=== PATIENT | male | born 1955 | race Caucasian/White ===

== ENCOUNTER 2016-12-27 10:03 | Emergency (ER) | payer MEDICAID, OTHER ==
[~2016-12-27] VITALS: Ht 182.9 cm; Wt 92.5 kg
[2016-12-27 10:52] LABS: Basophils # (auto) 0 uL; Basophils % (auto) 0.4 % (0.0-2.0); DEFINITIVE VIEW TRANSMISSION; Eosinophils # (auto) 0 uL; Eosinophils % (auto) 0.3 % (0.0-7.0); Hematocrit 52.9 % (41.0-53.0); Lymphocytes # (auto) 1.4 uL; Lymphocytes % (auto) 13.3 % (10.0-50.0); Mean Corpuscular Hemoglobin 27.4 pg (28.0-32.0); Mean Corpuscular Hgb Conc. 32.1 g/dL (32.0-36.0); Mean Corpuscular Volume 85.5 fL (80.0-100.0); Mean Platelet Volume 8.2 fL (7.4-10.4); Monocytes # (auto) 0.6 uL; Monocytes % (auto) 5.8 % (0.0-12.0); Neutrophils # (auto) 8.7 uL; Neutrophils % (auto) 80.2 % (37.0-80.0); Platelet Count (auto) 288 10^3/uL (140-450); Red Cell Distribution Width 13.9 % (11.6-16.0); White Blood Cell 10.8 10^3/uL (4.4-10.8)
[2016-12-27 11:20] LABS: Albumin 4.2 g/dL (3.4-5.0); BUN/Creatinine Ratio 12.9; Bilirubin, Total 0.5 mg/dL (0.2-1.0); Calcium 9.3 mg/dL (8.5-10.1)
[2016-12-27 12:00] VITALS: BP 154/101
== END 2016-12-27 12:14 | disposition home or self-care (01) ==
LOC: ER 10:03
DX: J20.9 Acute bronchitis, unspecified (principal); Z98.890 Other specified postprocedural states
CPT/HCPCS: 36415; 71020; 80053; 83735; 84484; 85025; 85379; 93005; 94761

== ENCOUNTER 2019-12-07 11:58 | Emergency (ER) | payer MEDICAID ==
[~2019-12-07] VITALS: Ht 182.9 cm; Wt 92.5 kg
[2019-12-07 13:21] LABS: Basophils # (auto) 0.1 uL; Basophils % (auto) 0.8 % (0.0-2.0); Eosinophils # (auto) 0.1 uL; Eosinophils % (auto) 0.9 % (0.0-7.0); Lymphocytes # (auto) 2.9 uL; Neutrophils # (auto) 7.5 uL
[2019-12-07 13:24] LABS: Hematocrit 51.9 % (41.0-53.0); Hemoglobin 17.9 g/dL (13.5-17.5); Lymphocytes % (auto) 24.7 % (10.0-50.0); Mean Corpuscular Hemoglobin 29.7 pg (28.0-32.0); Mean Corpuscular Hgb Conc. 34.5 g/dL (32.0-36.0); Monocytes # (auto) 1.1 uL; Monocytes % (auto) 9.4 % (0.0-12.0); Neutrophils % (auto) 64.2 % (37.0-80.0); Nucleated Red Blood Cells % 0.5 %; Platelet Count (auto) 328 10^3/uL (140-450); Red Blood Cells 6.03 10^6/uL (4.5-5.90); Red Cell Distribution Width 12.7 % (11.8-14.3); White Blood Cell 11.6 10^3/uL (4.4-10.8)
[2019-12-07 13:46] LABS: Chloride 109 mmol/L (98-107); Potassium 3.9 mmol/L (3.5-5.1); Sodium 139 mmol/L (136-145)
[2019-12-07 13:52] LABS: Alanine Aminotransferase 51 U/L (16-61); Albumin 4.3 g/dL (3.4-5.0); Anion Gap 9 (5-15); Aspartate Aminotransferase 28 U/L (15-37); BUN/Creatinine Ratio 11.5; Blood Urea Nitrogen 15 mg/dL (7-18); Calcium 9.5 mg/dL (8.5-10.1); Carbon Dioxide 21 mmol/L (21-32); GFR African American 71 mL/min; GFR Non-African American 59 mL/min; Glucose 108 mg/dL (74-106)
[2019-12-07 14:10] LABS: Alkaline Phosphatase 50 U/L (45-117); Bilirubin, Total 0.4 mg/dL (0.2-1.0); Total Protein 8.2 g/dL (6.4-8.2)
[2019-12-07 16:55] VITALS: BP 149/96
== END 2019-12-07 16:59 | disposition home or self-care (01) ==
LOC: ER 11:58
DX: J20.9 Acute bronchitis, unspecified (principal); R07.89 Other chest pain; R11.2 Nausea with vomiting, unspecified; E78.5 Hyperlipidemia, unspecified; I10 Essential (primary) hypertension
CPT/HCPCS: 36415; 71046; 80053; 84484; 85025; 93005

== ENCOUNTER 2024-02-15 18:09 | Inpatient (IN) | payer MEDICARE, MEDICAID ==
[~2024-02-15] VITALS: Ht 182.9 cm; Wt 85.4 kg
[2024-02-15] MEDS: MECLIZINE HCL 25 MG TAB PO ONE (19:12)
[2024-02-15 19:14] LABS: Basophils # (auto) 0.1 10 ^3/uL (0-0.2); Basophils % (auto) 0.4 % (0.0-2.0); Eosinophils # (auto) 0.1 10 ^3/uL (0-0.8); Eosinophils % (auto) 0.5 % (0.0-7.0); Hematocrit 45.9 % (41.0-53.0); Hemoglobin 15.4 g/dL (13.5-17.5); Lymphocytes # (auto) 1.5 10 ^3/uL (0.4-5.4); Lymphocytes % (auto) 8.4 % (10.0-50.0); Mean Corpuscular Hemoglobin 28.3 pg (28.0-32.0); Mean Corpuscular Hgb Conc. 33.6 g/dL (32.0-36.0); Mean Corpuscular Volume 84.3 fL (80.0-100.0); Monocytes # (auto) 0.8 10 ^3/uL (0-1.3); Monocytes % (auto) 4.6 % (0.0-12.0); Neutrophils % (auto) 86.1 % (37.0-80.0); Red Blood Cells 5.45 10^6/uL (4.5-5.90); Red Cell Distribution Width 13.1 % (11.8-14.3); White Blood Cell 17.4 10^3/uL (4.4-10.8)
[2024-02-15 19:29] LABS: INR 1.09 (0.9-1.15); Partial Thromboplastin Time 25.6 SEC (24.5-34.5); Prothrombin Time 11.4 sec (9.3-11.8)
[2024-02-15 19:34] LABS: Alanine Aminotransferase 59 U/L (7-40); Albumin 4.5 g/dL (3.2-4.8); Alkaline Phosphatase 47 U/L (46-116); Anion Gap 7 (5-15); Aspartate Aminotransferase 37 U/L (13-40); BUN/Creatinine Ratio 13.9 (10.0-20.0); Blood Urea Nitrogen 15 mg/dL (9-23); Calcium 10.3 mg/dL (8.7-10.4); Carbon Dioxide 23 mmol/L (20-30); Chloride 105 mmol/L (98-107); Glucose 263 mg/dL (74-106); Sodium 135 mmol/L (136-145)
[2024-02-15 19:35] LABS: Bilirubin, Total 0.5 mg/dL (0.2-1.0)
[2024-02-15 19:50] VITALS: PULSE 86; RESP 20; O2SAT 95
[2024-02-15] MEDS: IOHEXOL 350 MG/ML 100ML IJ ONE (20:20)
[2024-02-15] MEDS: LABETALOL HCL 5 MG/ML 4ML SYRINGE IV ONE (20:34)
[2024-02-15] MEDS ORDERED: DEXTROSE (50%) 50ML SYRG IV PRN ×2 (21:00→21:15)
[2024-02-15] MEDS ORDERED: MECLIZINE HCL 25 MG TAB PO PRN ×2 (21:00→21:15)
[2024-02-15] MEDS ORDERED: TEMAZEPAM 15 MG CAP PO PRN ×2 (21:00→21:15)
[2024-02-15] MEDS ORDERED: hydrALAZINE HCL 20 MG/ML VL IV PRN (21:00)
[2024-02-15] MEDS ORDERED: ACETAMINOPHEN 325 MG TAB PO PRN (21:00)
[2024-02-15] MEDS ORDERED: ONDANSETRON HCL 4 MG/2 ML VIAL IV PRN (21:00)
[2024-02-15] MEDS: PIPERACILLIN-TAZOB 3.375GM 100 ML IV ONE (21:05)
[2024-02-15 21:18] LABS: Urine Bacteria None Seen /hpf (None Seen)
[2024-02-15 21:39] LABS: Urine Blood Negative /uL (Negative); Urine Clarity Clear (Clear); Urine Color Light-Yellow (Yellow); Urine Protein, UAD Negative (Negative); Urine Urobilinogen Normal (Negative); Urine WBC 1 /hpf (0 - 3)
[2024-02-15 21:40] LABS: Amphetamine Screen, Urine Neg (NEGATIVE); Barbiturate Scree,Urine Neg (NEGATIVE); Benzodiazephine Screen, Urine Neg (NEGATIVE); Cannabinoid Screen, Urine Pos (NEGATIVE); Cocaine Screen, Urine Neg (NEGATIVE); Opiate Scree,Urine Neg (NEGATIVE); Phencyclidine Screen, Urine Neg (NEGATIVE)
[2024-02-15 21:42] LABS: Urine Specific Gravity > 1.050 (1.001-1.035)
[2024-02-15] MEDS ORDERED: ATORVASTATIN 20 MG TAB PO SCH (22:00)
[2024-02-15] MEDS ORDERED: ACCU-CHEK COMFORT CURVE STRIP VI SCH (22:00)
[2024-02-15] MEDS ORDERED: InsuLIN REG 1unit/0.01ml Soln (100units/ml) SC SCH (22:00)
[2024-02-15] MEDS: ACCU-CHEK COMFORT CURVE STRIP VI SCH (22:44)
[2024-02-15] MEDS: InsuLIN REG 1unit/0.01ml Soln (100units/ml) SC SCH (22:54)
[2024-02-15] MEDS: ATORVASTATIN 20 MG TAB PO SCH (22:54)
[2024-02-16] VITALS (8 sets, daily range): BP systolic 124–156; BP diastolic 78–90; PULSE 87–106; RESP 16–18; TEMP 97.7–98.5; O2SAT 93–96
[2024-02-16] MEDS: hydrALAZINE HCL 20 MG/ML VL IV PRN (00:26)
[2024-02-16] MEDS ORDERED: METF-370 PO (02:19)
[2024-02-16] MEDS ORDERED: AMLO1TAB23 PO (02:19)
[2024-02-16] MEDS ORDERED: SITA100T7 PO (02:19)
[2024-02-16] MEDS ORDERED: GLIP10TA9 PO (02:19)
[2024-02-16] MEDS ORDERED: ATOR20TA50 PO (02:19)
[2024-02-16 05:46] LABS: Basophils # (auto) 0.1 10 ^3/uL (0-0.2); Basophils % (auto) 0.5 % (0.0-2.0); Eosinophils # (auto) 0.1 10 ^3/uL (0-0.8); Eosinophils % (auto) 1.1 % (0.0-7.0); Lymphocytes # (auto) 2.9 10 ^3/uL (0.4-5.4); Lymphocytes % (auto) 23.3 % (10.0-50.0); Mean Corpuscular Hemoglobin 28.7 pg (28.0-32.0); Mean Corpuscular Volume 84.3 fL (80.0-100.0); Monocytes # (auto) 1.2 10 ^3/uL (0-1.3); Monocytes % (auto) 9.1 % (0.0-12.0); Neutrophils # (auto) 8.3 10 ^3/uL (1.6-8.6); Red Blood Cells 5.57 10^6/uL (4.5-5.90); Red Cell Distribution Width 13.2 % (11.8-14.3); White Blood Cell 12.6 10^3/uL (4.4-10.8)
[2024-02-16 05:52] LABS: Chloride 109 mmol/L (98-107); Potassium 3.4 mmol/L (3.5-5.1); Sodium 139 mmol/L (136-145)
[2024-02-16 05:53] LABS: Anion Gap 5 (5-15); Carbon Dioxide 25 mmol/L (20-30)
[2024-02-16 05:54] LABS: Calcium 9.7 mg/dL (8.5-10.1)
[2024-02-16 05:58] LABS: Glucose 176 mg/dL (74-106)
[2024-02-16 05:59] LABS: BUN/Creatinine Ratio 9.9 (10.0-20.0); Blood Urea Nitrogen 10 mg/dL (9-23)
[2024-02-16] MEDS ORDERED: DEXTROSE (50%) 50ML SYRG IV PRN (08:00)
[2024-02-16 08:24] LABS: CRP High Sensitivity 0.15 mg/dL (<1.0)
[2024-02-16 08:51] LABS: Erythrocyte Sedimentation Rate 1 mm/hr (0-20)
[2024-02-16] MEDS ORDERED: cefTRIAXone 1GM/50ML D5W 50 ML IV SCH (09:00)
[2024-02-16 09:21] LABS: Folate (Folic Acid) 38.69 ng/mL (>5.38)
[2024-02-16] MEDS: ENOXAPARIN SOD 40 MG/0.4 ML SYRINGE SC SCH (09:56)
[2024-02-16] MEDS: amLODIPine BESYLATE 5 MG TAB PO SCH (09:57)
[2024-02-16] MEDS ORDERED: LISINOPRIL 5 MG TAB PO SCH ×2 (10:00)
[2024-02-16] MEDS ORDERED: ENOXAPARIN SOD 40 MG/0.4 ML SYRINGE SC SCH (10:00)
[2024-02-16 10:22] LABS: Magnesium 1.9 mg/dL (1.6-2.6)
[2024-02-16] MEDS: POTASSIUM EFFERVESENT TAB 25 MEQ PO ONE (12:17)
[2024-02-16] MEDS: ACCU-CHEK COMFORT CURVE STRIP VI SCH (12:18)
[2024-02-16] MEDS: InsuLIN REG 1unit/0.01ml Soln (100units/ml) SC SCH ×2 (12:22→22:07)
[2024-02-16] MEDS: INSULIN LANTUS (GLARGINE) 1 /0.01ml (100units/ml) SC ONE (12:23)
[2024-02-16] MEDS ORDERED: FENO160T PO (15:16)
[2024-02-16] MEDS: ACETAMINOPHEN 325 MG TAB PO PRN (22:02)
[2024-02-16] MEDS: ATORVASTATIN 20 MG TAB PO SCH (22:03)
[2024-02-17 05:00] VITALS: BP 138/91; PULSE 93; RESP 18; TEMP 98.6; O2SAT 95
[2024-02-17] MEDS: ONDANSETRON HCL 4 MG/2 ML VIAL IV PRN (06:15)
[2024-02-17] MEDS: INSULIN LANTUS (GLARGINE) 1 /0.01ml (100units/ml) SC SCH (06:56)
[2024-02-17 07:04] LABS: Basophils # (auto) 0 10 ^3/uL (0-0.2); Basophils % (auto) 0.4 % (0.0-2.0); Eosinophils # (auto) 0.2 10 ^3/uL (0-0.8); Eosinophils % (auto) 1.9 % (0.0-7.0); Hematocrit 50.5 % (41.0-53.0); Hemoglobin 17.2 g/dL (13.5-17.5); Lymphocytes # (auto) 2.9 10 ^3/uL (0.4-5.4); Lymphocytes % (auto) 24.5 % (10.0-50.0); Mean Corpuscular Hemoglobin 28.9 pg (28.0-32.0); Mean Corpuscular Volume 84.9 fL (80.0-100.0); Monocytes # (auto) 0.9 10 ^3/uL (0-1.3); Monocytes % (auto) 7.4 % (0.0-12.0); Neutrophils # (auto) 7.8 10 ^3/uL (1.6-8.6); Neutrophils % (auto) 65.8 % (37.0-80.0); Nucleated Red Blood Cells % 0.1 %; Red Blood Cells 5.95 10^6/uL (4.5-5.90); Red Cell Distribution Width 13.2 % (11.8-14.3); White Blood Cell 11.9 10^3/uL (4.4-10.8)
[2024-02-17 07:07] LABS: RPR Non Reactive (Non Reactive)
[2024-02-17 07:23] LABS: Alanine Aminotransferase 60 U/L (7-40); Albumin 4.5 g/dL (3.2-4.8); Alkaline Phosphatase 51 U/L (46-116); Anion Gap 5 (5-15); Aspartate Aminotransferase 46 U/L (13-40); BUN/Creatinine Ratio 13.1 (10.0-20.0); Blood Urea Nitrogen 14 mg/dL (9-23); Calcium 10.1 mg/dL (8.5-10.1); Carbon Dioxide 22 mmol/L (20-30); Chloride 109 mmol/L (98-107); Glucose 243 mg/dL (74-106); Potassium 3.7 mmol/L (3.5-5.1); Sodium 136 mmol/L (136-145)
[2024-02-17 07:24] LABS: Bilirubin, Total 0.8 mg/dL (0.2-1.0); Total Protein 7.4 g/dL (5.7-8.2)
[2024-02-17 08:00] VITALS: PULSE 94; RESP 20; O2SAT 96
[2024-02-17 09:00] VITALS: BP 135/89; PULSE 94; RESP 20; TEMP 97.9; O2SAT 96
[2024-02-17] MEDS ORDERED: MECL-90 PO (10:27)
== END 2024-02-17 13:00 | disposition home or self-care (01) | DRG 74 ==
LOC: EDBD 18:09 → ER 18:09 → OVERFLOW 21:08 → ER 21:08 → WEST WING 02-16 00:40
PROVIDERS: ADMIT Internal Medicine; ATTEND Neuromusculoskeletal Medicine & OMM
DX: G90.8 Other disorders of autonomic nervous system (principal); R65.10 Systemic inflammatory response syndrome (SIRS) of non-infectious origin without acute organ dysfunction; I10 Essential (primary) hypertension; F41.9 Anxiety disorder, unspecified; E87.6 Hypokalemia; E78.2 Mixed hyperlipidemia; F12.90 Cannabis use, unspecified, uncomplicated; E11.9 Type 2 diabetes mellitus without complications
CPT/HCPCS: 36415; 70450; 71045; 71275; 80048; 80053; 80061; 80307; 81001; 82140; 82306; 82607; 82746; 82962; 83036; 83605; 83735; 83880; 84443; 84484; 85025; 85379; 85610; 85652; 85730; 86141; 86592; 87040; 93005; 93306; 93886; 93970; G0378; J1815; J2405; J2543; J3490